=== PATIENT | female | born 1990 | race Hispanic/Latino ===

== ENCOUNTER 2019-04-16 23:47 | Emergency (ER) | payer OTHER ==
[~2019-04-16] VITALS: Ht 152.4 cm; Wt 54.0 kg
--- NOTE | 2019-04-17 00:28 | NUR ---
ultrasound paged - waiting for call back
--- NOTE | 2019-04-17 01:49 | Diagnostic Imaging Report ---
EXAM: Complete Abdominal Ultrasound INDICATION: Left-sided abdominal pain COMPARISON: None. TECHNIQUE: Transverse and longitudinal images of the upper abdomen were obtained. FINDINGS: Liver: Size: 14.3 cm in the right midclavicular line, normal Appearance: Normal echogenicity, smooth contour Mass: No focal masses Spleen: Size: 10.6 cm in length, normal Echogenicity: Normal Mass: No focal masses Gallbladder: Stones/Sludge: None Wall: 0.1 cm Appearance: No pericholecystic fluid or hydrops. Sonographic Fernandez's Sign: Negative Bile Ducts: Intrahepatic Ducts: No dilatation Extrahepatic Ducts: Common bile duct measures 0.2 cm, no dilatation Pancreas: Visualized pancreas is unremarkable. Right Kidney: Size: 11 cm Echogenicity: Normal Parenchymal thickness: Normal Collecting System: No hydronephrosis Stone: None Cyst/Mass: None Left Kidney: Size: 10.5 cm Echogenicity: Normal Parenchymal thickness: Normal Collecting System: No hydronephrosis Stone: None Cyst/Mass: None Vessels: Aorta: Visualized portions are normal Inferior Vena Cava: Visualized portions are normal Main Portal Vein: 0.9 cm, normal size with hepatopetal flow. Free Fluid: No ascites or pleural effusion IMPRESSION: Unremarkable abdominal ultrasound. Signed by: Dr. Hardik De La Cruz MD on 04/17/2019 1:46 AM
[2019-04-17] MEDS ORDERED: CEFTRIAXONE SOD 1 GM/NS 50 ML 50 ML IV SCH (02:00)
[2019-04-17] MEDS ORDERED: SODIUM CHLORIDE 0.9% 1000ML 1,000 ML IV SCH (02:00)
[2019-04-17] MEDS ORDERED: CEFTRIAXONE SOD 1 GM/NS 50 ML 50 ML IV ONE (02:00)
[2019-04-17] MEDS ORDERED: SODIUM CHLORIDE 0.9% 1000ML 1,000 ML ONE (02:01)
== END 2019-04-17 02:48 | disposition short-term general hospital (02) ==
LOC: FSED 23:47
DX: O26.891 Other specified pregnancy related conditions, first trimester (principal); Z3A.10 10 weeks gestation of pregnancy; O21.8 Other vomiting complicating pregnancy; E87.6 Hypokalemia
CPT/HCPCS: 76700; 80053; 80076; 81003; 85025; 99284; J0696; J7030